=== PATIENT | male | born 2000 | race Caucasian/White ===

== ENCOUNTER 2022-10-11 10:30 | Outpatient (RCR) | payer OTHER, BC, SELFPAY ==
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
--- NOTE | 2022-10-11 12:56 | HP.PTDCSUM ---
Discharge Summary D/C summary: It has been my pleasure to treat LESLIE GIBSON referred by SHANTHI WHEELER, with the diagnosis of TBI with occipital skull fx for a total of 4 visit(s). Discharge Date: Please see the following information for a summary of their discharge status. Subjective Subjective: I am ready to get back to work Overall Improvement % Improvement: 80 Objective Objective/Function: Pt is now I with HEP Goals Goal 1:: I with HEP Goal Progress: Goal Met Plan Plan: Discharge to HEP D/C Information d/c sentence: If there are questions or concerns regarding this patient's physical therapy, please feel free to call me at [phone]. Thank you for the referral of this patient. Sincerely, Maurizio Cast, PT, ATC Balance/Gait/Functional tests Balance/Special Test Scores Functional Gait Assessment Score: 30 % Disability: 0 Lower Extremity Functional Score: 77
== END 2022-10-11 19:00 | disposition home or self-care (01) ==
LOC: PT 10:30
DX: S06.6XAD Traumatic subarachnoid hemorrhage with loss of consciousness status unknown, subsequent encounter (principal); S01.01XD Laceration without foreign body of scalp, subsequent encounter; S06.9X1D Unspecified intracranial injury with loss of consciousness of 30 minutes or less, subsequent encounter
CPT/HCPCS: 97110; 97161; 97164; 97165